=== PATIENT | female | born 1995 | race Caucasian/White ===

== ENCOUNTER 2016-06-24 13:01 | Emergency (ER) | payer MEDICAID, OTHER ==
[2016-06-24 13:28] VITALS: BMI 30.7
[2016-06-24] MEDS ORDERED: Sodium Chloride 0.9% 1,000 ML IV ONE (13:42)
[2016-06-24 13:44] VITALS: RESP 18; O2SAT 99
[2016-06-24 14:31] LABS: BASO % 0.5 % (0.0-2.0); EOS # 0.1 K/uL (0.0-0.7); EOS % 0.9 % (0.0-4.0); HEMATOCRIT 38.1 % (34.0-47.0); LYMPH # 1.7 K/uL (1.0-4.3); LYMPH % 30.6 % (20.0-40.0); MEAN CELL VOLUME 83.2 fL (81.0-99.0); MEAN CORPUSCULAR HEMOGLOBIN 27.8 pg (27.0-31.0); MEAN CORPUSCULAR HGB CONC 33.5 g/dL (33.0-37.0); MEAN PLATELET VOLUME 9.4 fL (7.2-11.7); MONO # 0.5 K/uL (0.0-0.8); MONO % 9.9 % (0.0-10.0); NRBC % 0.1 % (0.0-2.0); RED CELL DISTRIBUTION WIDTH 13.4 % (11.5-14.5); WHITE BLOOD COUNT 5.4 K/uL (4.8-10.8)
[2016-06-24 14:48] LABS: BLOOD UREA NITROGEN 3 mg/dL (7-17); CARBON DIOXIDE 22 mmol/L (22-30); CHLORIDE 100 mmol/L (98-107); GFR AFRICAN-AMERICAN > 60; GLUCOSE,RANDOM 72 mg/dL (65-105); POTASSIUM 3.7 mmol/L (3.6-5.2); SODIUM 131 mmol/L (132-148)
[2016-06-24 14:58] LABS: URINE BILIRUBIN NEGATIVE (NEGATIVE); URINE BLOOD NEGATIVE (NEGATIVE); URINE COLOR YELLOW (YELLOW); URINE GLUCOSE (UA) Normal (Normal); URINE KETONE NEGATIVE (NEGATIVE); URINE LEUKOCYTE ESTERASE Negative Leu/uL (Negative); URINE PROTEIN NEGATIVE (NEGATIVE); URINE UROBILINOGEN Normal mg/dL (0.2-1.0)
[2016-06-24 14:59] LABS: URINE BACTERIA OCC (<OCC)
[2016-06-24 15:09] LABS: CALCIUM 8.1 mg/dl (8.6-10.4)
--- NOTE | 2016-06-24 15:16 | US ---
PROCEDURE: OB Pelvic Ultrasound HISTORY: pain COMPARISON: Comparison is made to the previous study dated 04/01/2016 FINDINGS: LMP: 01/11/2016 UTERUS: Gestational sac: Single intrauterine gestation. Heart rate: 144 bpm. age (Ultrasound estimated): 19 weeks 2 days +/- 1 week 2 days Julieth-gestational hemorrhage: None. Date of delivery (Ultrasound estimated) : 11/16/2016 Placenta seen at the anterior wall. CERVIX: Long and closed. No cervical abnormality seen. RIGHT OVARY: Was not visualized. LEFT OVARY: Was not visualized. FREE FLUID: None. OTHER FINDINGS: None. IMPRESSION: Single intrauterine live with ultrasound estimated gestational age of 19 weeks 2 days +/- 1 week 2 days. Estimated date of delivery by ultrasound is 11/16/2016. Limited assessment for anatomy in this study. No ultrasound evidence of acute pathology noted.
--- NOTE | 2016-06-24 15:36 | C.PDOC ---
History Of Present Illness The patient, a 20 y/o female who is currently around 18 weeks , presents to the ED for evaluation of abdominal pain which began around 5 days ago. Patient states her LMP was 01/10 and she us . Patient states her pain worsened today and she reports to the ED for further evaluation. She denies fever, chills, back pain, nausea, vomiting, and diarrhea. Time Seen by Provider: 06/24/16 13:20 Chief Complaint (Nursing): Abdominal Pain History Per: Patient History/Exam Limitations: no limitations Onset/Duration Of Symptoms: Days (5), Worse Since Current Symptoms Are (Timing): Worse Location Of Pain/Discomfort: Diffuse Radiation Of Pain To:: None Quality Of Discomfort: "Pain" Associated Symptoms: denies: Fever, Chills, Nausea, Vomiting, Diarrhea Additional History Per: Patient Abnormal Vaginal Bleeding: No Last Menstral Period: 01/11/16 : 2 Para: 0 Past Medical History Reviewed: Historical Data, Nursing Documentation, Vital Signs Vital Signs: Last Vital Signs Temp 98 F 06/24/16 15:47 Pulse 88 06/24/16 15:47 Resp 18 06/24/16 15:47 BP 112/67 06/24/16 15:47 Pulse Ox 99 06/24/16 16:00 - Medical History PMH: No Chronic Diseases Surgical History: Appendectomy - [facility] Procedures INJECT/INFUSE ELECTROLYT (09/18/13) INJECT/INFUSE NEC (09/18/13) Family History: States: Unknown Family Hx - Social History Hx Tobacco Use: Yes Hx Alcohol Use: Yes Hx Substance Use: No - Immunization History Hx Tetanus Toxoid Vaccination: No Hx Influenza Vaccination: No Hx Pneumococcal Vaccination: No Review Of Systems Except As Marked, All Systems Reviewed And Found Negative. Constitutional: Negative for: Fever, Chills Gastrointestinal: Positive for: Abdominal Pain. Negative for: Nausea, Vomiting , Diarrhea Musculoskeletal: Negative for: Back Pain Physical Exam - Physical Exam Appears: Non-toxic, No Acute Distress Skin: Normal Color, Warm, Dry Head: Atraumatic, Normacephalic Eye(s): bilateral: Normal Inspection Oral Mucosa: Moist Neck: Supple Chest: Symmetrical, No Deformity, No Tenderness Cardiovascular: Rhythm Regular, No Murmur Respiratory: Normal Breath Sounds, No Rales, No Rhonchi, No Wheezing Gastrointestinal/Abdominal: Tenderness (mild to lower abdomen on palpation ), No Guarding, No Rebound Back: Normal Inspection, No Vertebral Tenderness, No Paraspinal Tenderness Extremity: Normal ROM, Capillary Refill (less than 2 seconds ) Neurological/Psych: Oriented x3, Normal Speech, Normal Cognition Gait: Steady ED Course And Treatment - Laboratory Results Result Diagrams: 06/24/16 14:13 06/24/16 14:13 Lab Interpretation: Normal Urine POC: Positive O2 Sat by Pulse Oximetry: 99 (on RA) Pulse Ox Interpretation: Normal - CT Scan/US Ultrasound Other Rad Studies (CT/US): Interpreted By Me, Read By Radiologist, Radiology Report Reviewed CT/US Interpretation: Accession No. : [id number]. Patient Name / ID : OLEKSANDR BYRNES / [id number]. Exam Date : 06/24/2016 14:14:47 ( Approved ). Study Comment : Sex / Age : F / 20Y. 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 Approver2 : Report Date : 06/24/2016 15:15:09. My Comment : . PROCEDURE: OB Pelvic Ultrasound. HISTORY: pain. COMPARISON: Comparison is made to the previous study dated 04/01/2016. FINDINGS: LMP: 01/11/2016. UTERUS: Gestational sac: Single intrauterine gestation. Heart rate: 144 bpm. age ( Ultrasound estimated): 19 weeks 2 days +/- 1 week 2 days. Julieth-gestational hemorrhage: None. Date of delivery (Ultrasound estimated) : 11/16/2016. Placenta seen at the anterior wall. CERVIX: Long and closed. No cervical abnormality seen. RIGHT OVARY: Was not visualized. LEFT OVARY: Was not visualized. FREE FLUID: None. OTHER FINDINGS: None. IMPRESSION: Single intrauterine live with ultrasound estimated gestational age of 19 weeks 2 days +/- 1 week 2 days. Estimated date of delivery by ultrasound is 03/2016. Limited assessment for anatomy in this study. No ultrasound evidence of acute pathology noted. Progress Note: labs and US ordered and reviewed. Patient received IV Fluids. On reasessment, patient is resting comfortably, showing no signs of distress, and reports an improvement in her pain. Patient was stable for discharge but left the ED without receiving discharge papers or follow-up instructions. Reassessment Condition: Improved Disposition Counseled Patient/Family Regarding: Studies Performed, Diagnosis, Need For Followup, Rx Given - Disposition Referrals: [facility] [Outside] [facility] [Outside] Disposition: HOME/ ROUTINE Disposition Time: 15:35 Condition: STABLE Instructions: (ED) - POA Present On Arrival: None - Clinical Impression Clinical Impression: Abdominal pain, , Abdominal pain affecting - PA / CAFE ATTENDANT / Resident Statement MD/DO has reviewed & agrees with the documentation as recorded. - Scribe Statement The provider has reviewed the documentation as recorded by the Scribe (Aaliyah Velazquez) All medical record entries made by the Scribe were at my direction and personally dictated by me. I have reviewed the chart and agree that the record accurately reflects my personal performance of the history, physical exam, medical decision making, and the department course for this patient. I have also personally directed, reviewed, and agree with the discharge instructions and disposition.
[2016-06-24 15:48] VITALS: BP 112/67; PULSE 88; TEMP 98
== END 2016-06-24 15:40 | disposition home or self-care (01) ==
LOC: C.ER 13:01
DX: O26.892 Other specified pregnancy related conditions, second trimester (principal); R10.30 Lower abdominal pain, unspecified; Z3A.18 18 weeks gestation of pregnancy

== ENCOUNTER 2016-09-04 20:42 | Emergency (ER) | payer SELFPAY ==
[2016-09-04 21:00] VITALS: BMI 34.7
[2016-09-04 21:20] LABS: BASO % 0.2 % (0.0-2.0); EOS % 0.1 % (0.0-4.0); HEMOGLOBIN 12.4 g/dL (11.0-16.0); LYMPH # 1.9 K/uL (1.0-4.3); LYMPH % 18.3 % (20.0-40.0); MEAN CELL VOLUME 80.7 fL (81.0-99.0); MEAN CORPUSCULAR HGB CONC 33.5 g/dL (33.0-37.0); MEAN PLATELET VOLUME 9.7 fL (7.2-11.7); MONO # 0.8 K/uL (0.0-0.8); MONO % 7.2 % (0.0-10.0); NEUT # 7.9 K/uL (1.8-7.0); NEUT % 74.2 % (50.0-75.0); RBC 4.6 Mil/uL (3.80-5.20); WHITE BLOOD COUNT 10.6 K/uL (4.8-10.8)
[2016-09-04 21:37] LABS: ALBUMIN 3.9 g/dL (3.5-5.0)
[2016-09-04 21:39] LABS: SQUAMOUS EPITHIAL 12 /hpf (0-5); URINE BACTERIA RARE (<OCC); URINE BILIRUBIN NEGATIVE (NEGATIVE); URINE BLOOD NEGATIVE (NEGATIVE); URINE CLARITY Hazy (Clear); URINE COLOR Amber (YELLOW); URINE GLUCOSE (UA) NORMAL (Normal); URINE LEUKOCYTE ESTERASE NEG Leu/uL (Negative); URINE NITRATE NEGATIVE (NEGATIVE); URINE PROTEIN 2+ mg/dL (NEGATIVE); URINE UROBILINOGEN NORMAL mg/dL (0.2-1.0)
[2016-09-04 21:40] LABS: ALB/GLOB RATIO 1.2 (1.0-2.1); ALT/SGPT 35 U/L (9-52); AST/SGOT 27 U/L (14-36); BLOOD UREA NITROGEN 5 mg/dL (7-17); GFR AFRICAN-AMERICAN > 60; GFR NON-AFRICAN AMERICAN > 60
[2016-09-04 21:41] LABS: CALCIUM 8.8 mg/dl (8.6-10.4)
== END 2016-09-04 23:34 | disposition home or self-care (01) ==
LOC: C.EROB 20:42
DX: O21.2 Late vomiting of pregnancy (principal); O26.893 Other specified pregnancy related conditions, third trimester; R19.7 Diarrhea, unspecified; Z3A.36 36 weeks gestation of pregnancy
CPT/HCPCS: 80053; 81001; 85025; 99283; J2405

== ENCOUNTER 2016-10-15 18:07 | Emergency (ER) | payer SELFPAY ==
--- NOTE | 2016-10-15 19:31 | OBHP ---
Datetime: 10/15/2016 19:18 IP Adm Impression: Term, intrauterine IP Admit Plan: Discharge home Admit Comment, IP Provider: 20 y/o @ 35.5 wks ERIC 11/14/16 report recently dx iwth yeast infe ction and seen by PMD Dr Boris briceño given medicaiton and reports vaignal burnig. pt denies any l of, vb, and has irregular contraction with pressure. pt states was told by pmd if has constant press ure go to hospital. 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, denies hx of abrnomla pap, fibroid, ovairan cyst NKDA FHX: DM, HTN, Asthma A/P @ 35.5 wks GA with vaginitis, no evdiece of labor -Monistat -labor precatuiosn given -f/u PMD within 1 week Pelvic Type - PN: Adequate Extremities - PN: Normal Abdomen - PN: Normal Back - PN: Normal Breast - PN: Not Done Lungs - PN: Normal Heart - PN: Normal Thyroid - PN: Normal Neurologic - PN: Normal HEENT - PN: Normal General - PN: Normal Presentation-Admit: Vertex FHR - Baseline A Provider: 135 Gestation - Est Wks by US: 35.5 EGA AdmitDate IP: 35.5 IP Chief Complaint: Other NICHD Variability Prov Fetus A: Moderate 6-25bpm NICHD Decel Fetus A IP Provider: None Genitourinary Exam: Normal DTRs - PN: Normal
--- NOTE | 2016-10-15 19:33 | OBDCSUM ---
Datetime: 10/15/2016 19:30 Follow up at, Provider: Dr Bassett Discharge Time: 10/15/2016 19:30 Follow up in weeks, Provider: 1 week Discharge Comment, Provider: labor jacky contreras 7 over the counter Discharge Diagnosis Prov Other: vaginitis
[2016-10-16 16:37] VITALS: BP 132/65; PULSE 82; RESP 18; TEMP 98.6; O2SAT 100
== END 2016-10-15 19:30 | disposition home or self-care (01) ==
LOC: C.EROB 18:07
DX: O23.593 Infection of other part of genital tract in pregnancy, third trimester (principal); Z3A.35 35 weeks gestation of pregnancy

== ENCOUNTER 2016-11-02 17:46 | Inpatient (IN) | payer MEDICAID, OTHER ==
[2016-11-02] MEDS ORDERED: Sodium Citrate/Citric Acid 15 ml Sol PO ONE (18:23)
[2016-11-02] MEDS ORDERED: cefOXitin IV 2 gm in Dextrose 2 GM/50 ML BAG IVPB ONE ×2 (18:23→18:51)
[2016-11-02] MEDS ORDERED: Sodium Citrate/Citric Acid 15 ml Sol ONE (18:50)
[2016-11-02 19:01] LABS: BASO % 0.7 % (0.0-2.0); EOS % 0.5 % (0.0-4.0); HEMATOCRIT 38.1 % (34.0-47.0); LYMPH # 2.1 K/uL (1.0-4.3); LYMPH % 30.8 % (20.0-40.0); MEAN CELL VOLUME 77.6 fL (81.0-99.0); MEAN CORPUSCULAR HEMOGLOBIN 25.7 pg (27.0-31.0); MEAN CORPUSCULAR HGB CONC 33.1 g/dL (33.0-37.0); MONO # 0.6 K/uL (0.0-0.8); MONO % 9.6 % (0.0-10.0); NRBC % 0.1 % (0.0-2.0); WHITE BLOOD COUNT 6.7 K/uL (4.8-10.8)
--- NOTE | 2016-11-02 19:50 | OBHP ---
Datetime: 11/02/2016 17:56 IP Adm Impression: Term, intrauterine ; Active labor IP Admit Plan: Admit to unit; Initiate Section protocol Admit Comment, IP Provider: 20 yo at 38 weeks 5 days with LMP (01/14/17) and an ERIC (11/12/16 ) as per Ultrasound. Patient presents with complaints of a 9/10 cramping/contraction that started at 2am this morning with one episode of vomiting at 6am. Patient stated that she felt a little better a fter vomiting, however, the contractions has been increasing in intensity since this morning. Patient denies vaginal bleeding, abnormal vaginal discharge, leakage of fluids but endorses movement. 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 Admits to tobacco use since age 16yea rs (2 cigarettes per day), denies ETOH and illicit drug use Vitals: BP:140/80 HR:81 A/P: 20 yo at 38 weeks 5 days with compliants of contraction 1. Admit to labor and delivery 2. Stable, Afebrile 3. Preparation for primary : (Admission orders) 4. Plans discussed with patient's primary recreation therapy director (Dr. Yu and he agrees) Jody Giles DO, PGY-1 Attending Attestation - patient seen and evaluated with me: I agree with the above as documented. Patient last ate full meal 2230 hours 11/01/16; drank glass of water at 0600 hours - vomited and has had nothing by mouth si nce. Plan: 1) As above - as per Dr. Yu Comments, ACOG Physical Exam: Gen: NAD, AAOX3 Cardio: RRR, Normal S1, S2 Pulm: CTA bilaterally Abdomen: Soft, gravid Ext: No edema, no cyanosis and no clubbing SVE: 1-2CM/40%/Posterior EFM: FHR (130), + Acceleration (-) deceleration EGA AdmitDate IP: 38.2 IP Chief Complaint: Uterine contractions
[2016-11-02] MEDS ORDERED: Morphine 1 mg/ml preservative-free Inj(Duramorph) ONE (19:59)
[2016-11-02] MEDS ORDERED: Phenylephrine 10 mg/ml Inj ONE (19:59)
[2016-11-02] MEDS ORDERED: Oxytocin 20 units in LR 2,000 ML IV ONE (20:03)
[2016-11-02] MEDS ORDERED: Lidocaine Hydrochloride 5 ML INJ ONE ×2 (20:21→20:37)
[2016-11-02] MEDS ORDERED: Propofol 10 mg/ml Inj (20 ML) ONE (20:46)
[2016-11-02] MEDS ORDERED: Succinylcholine Chloride 20 mg/ml Syr (5 ml) IV ONE (20:46)
[2016-11-02] MEDS ORDERED: Ketamine 50 mg/ml Inj (10 ml) ONE (20:47)
[2016-11-02] MEDS ORDERED: Oxytocin 10 Units/ml Inj ONE (21:02)
[2016-11-02] MEDS ORDERED: Oxycodone/Acetaminophen 5/325 mg Tab PO PRN (21:41)
[2016-11-02] MEDS ORDERED: Lactated Ringer's 1,000 ML IV SCH (21:45)
[2016-11-02 21:48] LABS: CHLORIDE 103 mmol/L (98-107); SODIUM 136 mmol/L (132-148)
[2016-11-02 21:49] LABS: POTASSIUM 3.9 mmol/L (3.6-5.2)
[2016-11-02 21:51] LABS: ALB/GLOB RATIO 1.3 (1.0-2.1); ALKALINE PHOSPHATASE 128 U/L (38-126); AST/SGOT 223 U/L (14-36); BILIRUBIN,TOTAL 0.7 mg/dL (0.2-1.3); BLOOD UREA NITROGEN 6 mg/dL (7-17); CARBON DIOXIDE 21 mmol/L (22-30); GFR AFRICAN-AMERICAN > 60; GLUCOSE,RANDOM 57 mg/dL (65-105); TOTAL PROTEIN 6.9 g/dL (6.3-8.3)
[2016-11-02 21:52] LABS: ALT/SGPT 177 U/L (9-52)
[2016-11-02 23:42] LABS: RBC URINE < 1 /hpf (0-3); TRANSITIONAL EPITHIAL < 1 /hpf (0-3); URINE BACTERIA RARE (<OCC); URINE BILIRUBIN NEGATIVE (NEGATIVE); URINE BLOOD NEGATIVE (NEGATIVE); URINE COLOR Yellow (YELLOW); URINE GLUCOSE (UA) NORMAL (Normal); URINE KETONE 1+ mg/dL (NEGATIVE); URINE LEUKOCYTE ESTERASE NEG Leu/uL (Negative); URINE PROTEIN NEGATIVE (NEGATIVE); URINE UROBILINOGEN NORMAL mg/dL (0.2-1.0)
[2016-11-03] MEDS: Oxycodone/Acetaminophen 5/325 mg Tab PO PRN ×5 (02:16→20:43)
[2016-11-03] MEDS: cefOXitin IV 2 gm in Dextrose 2 GM/50 ML BAG IVPB SCH ×2 (02:18→11:37)
[2016-11-03] MEDS ORDERED: cefOXitin IV 2 gm in Dextrose 2 GM/50 ML BAG IVPB SCH (02:23)
--- NOTE | 2016-11-03 06:55 | HP ---
HISTORY OF PRESENT ILLNESS: The patient is a 20-year-old female, 2, para 0. The patient's due date is 11/12/2016. The patient had previously elected to undergo an elective section on , but came in today with contractions and in early labor. The patient's course is significant for episodes of vomiting, which had persisted throughout the . She is currently on vitafol ultra. The patient was also noncompliant with visit. PAST SURGICAL HISTORY: Significant for a termination of x1. PHYSICAL EXAMINATION: VITAL SIGNS: Blood pressure is 110/70, pulse is 72, respiratory rate 20, and temperature is 98.8. HEAD, EARS, NOSE, AND THROAT: Within normal. CHEST: Clear. CARDIAC: Reveals normal heart sounds without any murmurs. LUNGS: Clear. BREASTS: Reveal no masses. ABDOMEN: Symphyseal-fundal height is 38 cm longitudinally, vertex. heart tones are normal. PELVIC: She is 1-2 cm, 80% effaced, -2 station. ADMITTING DIAGNOSIS: Intrauterine at 38 weeks in early labor, desires elective section. PLAN: Is to perform a lower segment section. Prior to being scheduled for surgical procedure, the patient underwent an informed consent, discussion, and education session with me in the hospital lasting approximately 45 minutes. During this time, I explained with an understandable terms the following: the nature and extent of the disease process and the nature and extent of the contemplated operation. I also explained to her the risks and potential complications of the operative procedures to include, but not limited to infection, hemorrhage, deep vein thrombosis, atelectasis, pneumonia, pulmonary embolism, damage to the bladder, damage to the ureter, renal insufficiency, renal failure, wound infection, wound dehiscence, incisional hernia, keloid formation, damage to large and small intestine, damage to inferior vena cava, and the aorta requiring extensive repair, anesthesia complications, electrolyte imbalance, possibility of , fluid overload, cerebral edema, embolism, and other complications that were discussed, but are not listed above. I also discussed with the patient the anticipated benefits and results of the surgery including a conservative estimate of the successful outcome. I discussed with the patient whether the operation was not accomplished. I informed the patient the possibility of an anticipated pathology requiring a more extensive procedure. All the questions from the patient were encouraged, welcomed and answered to her satisfaction. The patient had been given the opportunity to stay on blood and autologous blood transfusion and she had declined. Britney Cao MD SANTY
[2016-11-03 08:58] LABS: BASO # 0.1 K/uL (0.0-0.2); BASO % 0.5 % (0.0-2.0); EOS % 0.2 % (0.0-4.0); HEMATOCRIT 30.3 % (34.0-47.0); LYMPH # 2.2 K/uL (1.0-4.3); LYMPH % 15.3 % (20.0-40.0); MEAN CELL VOLUME 77.3 fL (81.0-99.0); MEAN CORPUSCULAR HEMOGLOBIN 25.7 pg (27.0-31.0); MEAN CORPUSCULAR HGB CONC 33.3 g/dL (33.0-37.0); MEAN PLATELET VOLUME 9.5 fL (7.2-11.7); MONO # 0.9 K/uL (0.0-0.8); MONO % 6.2 % (0.0-10.0); RED CELL DISTRIBUTION WIDTH 15.6 % (11.5-14.5)
[2016-11-03 09:00] LABS: WHITE BLOOD COUNT 14.3 K/uL (4.8-10.8)
--- NOTE | 2016-11-03 10:27 | PN ---
SUBJECTIVE: The patient has no complaints, mild incisional pain. OBJECTIVE: VITAL SIGNS: Stable. She is afebrile. ABDOMEN: Soft. Incision is clean and intact. Bowel sounds are normal. EXTREMITIES: Nontender. No evidence of DVT. Delon's sign is negative. CHEST: Clear. CARDIAC: Reveals normal heart sounds without any murmurs. LUNGS: Clear. ASSESSMENT: The patient is status post cesarian section day #1. PLAN: Is to ambulate the patient. Advanced diet as tolerated. Britney Cao MD
[2016-11-03] MEDS ORDERED: cefOXitin IV 2 gm in Dextrose 2 GM/50 ML BAG IVPB ONE (10:30)
--- NOTE | 2016-11-03 12:11 | US ---
HISTORY: elevated liver enzymes. COMPARISON: None available. TECHNIQUE: Sonographic evaluation of the abdomen. FINDINGS: LIVER: Measures 17.4 cm in sagittal dimension. Echogenic liver may be seen in setting of hepatic parenchymal disease or fatty infiltration. No focal hepatic mass identified. The main portal vein appears patent with normal directional flow. No intrahepatic bile duct dilatation. GALLBLADDER: Gallstones. No gallbladder wall thickening. Negative sonographic Ansari's sign as assessed by the instructional developer. COMMON BILE DUCT: Measures 4 mm. PANCREAS: Not well visualized. RIGHT KIDNEY: Measures 12.7 x 4.5 x 4.8cm. No obstructing calculus or hydronephrosis identified. LEFT KIDNEY: Measures 12.4 x 6.0 x 6.6cm. No obstructing calculus or hydronephrosis identified. SPLEEN: Measures approximately 11.7 x 3.1 cm. AORTA: Limited views appear unremarkable. IVC: Limited views appear unremarkable. OTHER FINDINGS: None. IMPRESSION: Echogenic liver may be seen in setting of hepatic parenchymal disease or fatty infiltration. Cholelithiasis.
[2016-11-03] MEDS: Prenatal Multivit/Folic Acid/Iron Tab PO SCH (12:17)
[2016-11-03] MEDS: Simethicone 80 mg Chewtab PO SCH ×4 (12:17→21:53)
[2016-11-03] MEDS: Enoxaparin 40 mg Syringe SC SCH (12:21)
[2016-11-03 14:59] LABS: CHLORIDE 104 mmol/L (98-107); POTASSIUM 3.7 mmol/L (3.6-5.2); SODIUM 134 mmol/L (132-148)
[2016-11-03 15:01] LABS: BILIRUBIN,TOTAL 0.4 mg/dL (0.2-1.3); CARBON DIOXIDE 22 mmol/L (22-30); GFR AFRICAN-AMERICAN > 60
[2016-11-03 15:02] LABS: ALB/GLOB RATIO 1.1 (1.0-2.1); ALKALINE PHOSPHATASE 78 U/L (38-126); ALT/SGPT 97 U/L (9-52); AST/SGOT 68 U/L (14-36); BLOOD UREA NITROGEN 4 mg/dL (7-17); CALCIUM 8.3 mg/dl (8.6-10.4); GLUCOSE,RANDOM 81 mg/dL (65-105); TOTAL PROTEIN 5.5 g/dL (6.3-8.3)
--- NOTE | 2016-11-03 15:56 | OP ---
PROCEDURE DATE: 11/02/2016 PREOPERATIVE DIAGNOSES: Intrauterine at 38 weeks and labor, desire elective section. POSTOPERATIVE DIAGNOSES: Intrauterine at 38 weeks and labor, desire elective section. PROCEDURE: Lower segment section. FINDINGS: A live male infant, Apgars 9 at one minute and 9 at five minutes with normal tubes and ovaries. SURGEON: Britney Cao MD TYPE OF ANESTHESIA: Spinal. ESTIMATED BLOOD LOSS: 350 mL COMPLICATIONS: Nil. DESCRIPTION OF PROCEDURE: After the risks, benefits and alternatives of the planned procedures including, but not limited to the infection, hemorrhage, deep vein thrombosis, atelectasis, pneumonia, pulmonary embolism, damage to the bladder, damage to the ureter, renal insufficiency, renal failure, wound infection, wound dehiscence, incisional hernia, keloid formation, damage to large and small intestine, damage to the inferior vena cava and the aorta requiring extensive repair, anesthesia complications, electrolyte imbalance, possibility of , fluid overload, cerebral edema, embolism, and other complications that were discussed, but are not listed above. They have been explained to the patient and all her questions answered. Informed consent was obtained. The patient was taken to the operating room in a stable condition. Under a suitable level of over 45 minutes, the patient was given general anesthesia, she was prepped and draped in a sterile fashion after having been placed in a supine position. The abdomen was then entered through a Pfannenstiel type incision and carried through the subcutaneous tissues through the fascia. The fascia was opened transversely and dissected of the rectus abdominis musculature. The rectus abdominis musculature was then in the midline to remove the parietal peritoneum, which was entered sharply and incised superiorly and inferiorly. Bladder peritoneum was then entered through a curvilinear fashion and dissected of the lower uterine segment. The lower uterine segment was then entered through a curvilinear incision. Surgeon's finger was inserted into the lower uterine segment to cross the infant's head, which was lying in the right occiput anterior position. The head was easily delivered. Nose and mouth were suctioned free of amniotic fluid and the remainder of the was delivered without any difficulty. Cord was doubly clamped and cut and the baby was handed over to the wind turbine blade repair technician who was in attendance. Cord blood was collected with Pitocin running, placenta was manually removed. The endometrium was then cleaned free of remaining membranes and clots. The uterine incision was then closed in layers with the first layer being running interlocking layer using #1 chromic and the second layer being used to imbricate the first layer. Hemostasis was good. The bladder peritoneum was then reapproximated using running suture of 2-0 chromic. Peritoneal cavity was then irrigated using copious amounts of saline. The saline was evacuated. The abdomen was then closed in layers with 0 chromic to the parietal peritoneum. The rectus muscles were reapproximated using interrupted sutures of 0 chromic. The fascia was reapproximated using two separate running sutures of 0 Vicryl to meet in the midline. Subcutaneous tissues were reapproximated using interrupted sutures of 0-Plain and the initial skin incision was reapproximated using 4-0 Vicryl in a subcuticular fashion. Estimated blood loss for the procedure was 350 mL. Sponge, needle, and instrument counts were correct x2. There were no complications. Britney Cao MD
[2016-11-04] MEDS: Oxycodone/Acetaminophen 5/325 mg Tab PO PRN ×6 (01:10→23:43)
[2016-11-04 08:38] VITALS: O2SAT 100
[2016-11-04] MEDS: Simethicone 80 mg Chewtab PO SCH ×5 (09:06→21:45)
[2016-11-04] MEDS: Enoxaparin 40 mg Syringe SC SCH (09:06)
[2016-11-04] MEDS: Prenatal Multivit/Folic Acid/Iron Tab PO SCH (09:09)
[2016-11-04 09:55] LABS: ALB/GLOB RATIO 1.1 (1.0-2.1); BILIRUBIN,DIRECT 0.3 mg/dL (0.0-0.4); BILIRUBIN,TOTAL 0.3 mg/dL (0.2-1.3); TOTAL PROTEIN 5.9 g/dL (6.3-8.3)
[2016-11-04 14:13] LABS: BASO % 0.2 % (0.0-2.0); EOS # 0.1 K/uL (0.0-0.7); EOS % 0.5 % (0.0-4.0); HEMATOCRIT 30.3 % (34.0-47.0); LYMPH # 1.6 K/uL (1.0-4.3); LYMPH % 13.8 % (20.0-40.0); MEAN CELL VOLUME 78.2 fL (81.0-99.0); MEAN CORPUSCULAR HEMOGLOBIN 25.3 pg (27.0-31.0); MEAN CORPUSCULAR HGB CONC 32.4 g/dL (33.0-37.0); MEAN PLATELET VOLUME 9.3 fL (7.2-11.7); MONO % 8.5 % (0.0-10.0); RED CELL DISTRIBUTION WIDTH 15.7 % (11.5-14.5); WHITE BLOOD COUNT 11.7 K/uL (4.8-10.8)
[2016-11-04 14:33] LABS: CHLORIDE 102 mmol/L (98-107); SODIUM 135 mmol/L (132-148)
[2016-11-04 14:34] LABS: POTASSIUM 3.7 mmol/L (3.6-5.2)
[2016-11-04 14:36] LABS: ALB/GLOB RATIO 1.1 (1.0-2.1); ALKALINE PHOSPHATASE 74 U/L (38-126); ALT/SGPT 71 U/L (9-52); AST/SGOT 39 U/L (14-36); BILIRUBIN,TOTAL 0.4 mg/dL (0.2-1.3); BLOOD UREA NITROGEN 4 mg/dL (7-17); CARBON DIOXIDE 23 mmol/L (22-30); GFR AFRICAN-AMERICAN > 60; GLUCOSE,RANDOM 80 mg/dL (65-105)
[2016-11-04 14:37] LABS: CALCIUM 8.9 mg/dl (8.6-10.4)
[2016-11-05] MEDS ORDERED: Measles, Mumps, and Rubella 0.5 ML VIAL SC ONE (07:19)
[2016-11-05] MEDS: Oxycodone/Acetaminophen 5/325 mg Tab PO PRN ×2 (08:28→12:13)
--- NOTE | 2016-11-05 09:04 | PN ---
DATE: 11/04/16 SUBJECTIVE: The patient has no complaints. OBJECTIVE: VITAL SIGNS: Stable. She is afebrile. SKIN: Abdominal incision is clean and intact. EXTREMITIES: Nontender . LABORATORY DATA: Abdominal ultrasound done on 11/03/2016 showed cholelithiasis with no evidence of a positive Ansari sign. No gallbladder wall thickening. Liver function tests are coming down to normal. ASSESSMENT AND PLAN: The patient is status post section with an evidence of cholelithiasis. Plan is to continue current management advanced diet and ambulate. The patient will be referred to general surgery postoperatively as an outpatient for possible cholecystectomy. Britney Cao MD
[2016-11-05] MEDS: Enoxaparin 40 mg Syringe SC SCH (10:42)
[2016-11-05] MEDS: Prenatal Multivit/Folic Acid/Iron Tab PO SCH (10:43)
[2016-11-05] MEDS: Simethicone 80 mg Chewtab PO SCH (10:43)
--- NOTE | 2016-11-06 00:03 | PN ---
DATE: SUBJECTIVE: Patient has no complaints. She is passing gas. She had a bowel movement. She does have no abdominal pain. Liver function tests have resolved, back to normal. OBJECTIVE: VITAL SIGNS: On exam vital signs are stable. ABDOMEN: Soft. Ansari sign is negative. Incision is clean and intact. EXTREMITIES: Nontender. NEUROLOGICAL: She is alert and oriented x3. : Lochia is scant. ASSESSMENT: Patient is status post section, day #3, cholelithiasis is . PLAN: Plan is to discharge the patient on Keflex 500 mg q.i.d. x7 days, Tylenol No. 3 two tablets q.4 hourly p.r.n. for a total of 40 tablet. Followed up in the office in 1 week. Britney Cao MD
[2016-11-06 00:29] VITALS: BP 128/81; PULSE 68; RESP 18; TEMP 98.4
--- NOTE | 2016-11-06 09:34 | DS ---
The patient is a 20-year-old female admitted at 38 weeks 5 days of in labor. The patient requested an elective section, underwent a lower segment section under general anesthesia after failed spinal. The patient was noted to have elevated liver function test, which resolved. Sonogram showed cholelithiasis. The patient was discharged home on Keflex 500 mg q.i.d. x7 days and Tylenol #3, to be followed up in the office in one week where she will be referred to general surgery for management of cholelithiasis. Britney Cao MD
== END 2016-11-05 14:45 | disposition home or self-care (01) | DRG 766 ==
LOC: C.EROB 17:46 → C.4D 18:25 → C.4M 11-03 00:29
PROVIDERS: ADMIT Obstetrics & Gynecology Reproductive Endocrinology; ATTEND Obstetrics & Gynecology Reproductive Endocrinology
PROC: 10D00Z1 Extraction of Products of Conception, Low, Open Approach (ICD-10-PCS; principal; 2016-11-02)
DX: O34.219 Maternal care for unspecified type scar from previous cesarean delivery (principal); F17.210 Nicotine dependence, cigarettes, uncomplicated; O99.334 Smoking (tobacco) complicating childbirth; O75.89 Other specified complications of labor and delivery; R11.10 Vomiting, unspecified; Z37.0 Single live birth; Z3A.38 38 weeks gestation of pregnancy

== ENCOUNTER 2017-09-01 19:02 | Emergency (ER) | payer MEDICAID ==
[2017-09-01 19:03] VITALS: BMI 34.7
[2017-09-01] MEDS ORDERED: Sodium Chloride 0.9% 1,000 ML IV ONE (19:51)
--- NOTE | 2017-09-01 19:51 | C.PDOC ---
"History Of Present Illness 21 y/o female with history of PCOS presents to ED with c/o cramping abdominal pain for 5-6 days. Patient reports she gave in October and secondary to PCOS has irregular menses. Patient denies fever, chills, vaginal bleeding, dysuria, nausea, vomiting or any other complaints at this time. Time Seen by Provider: 09/01/17 19:50 Chief Complaint (Nursing): Abdominal Pain History Per: Patient History/Exam Limitations: no limitations Onset/Duration Of Symptoms: Days Current Symptoms Are (Timing): Still Present Severity: Mild Pain Scale Rating Of: 2 Location Of Pain/Discomfort: Diffuse Radiation Of Pain To:: None Quality Of Discomfort: Cramping Associated Symptoms: denies: Fever, Chills, Nausea, Vomiting Exacerbating Factors: None Alleviating Factors: None Past Medical History Reviewed: Historical Data, Nursing Documentation, Vital Signs Vital Signs: Last Vital Signs Temp 98.6 F 09/01/17 22:50 Pulse 73 09/01/17 22:50 Resp 16 09/01/17 22:50 BP 120/64 09/01/17 22:50 Pulse Ox 99 09/01/17 23:37 - Medical History PMH: No Chronic Diseases Surgical History: Appendectomy - [facility] Procedures EXTRACTION OF POC, LOW CERVICAL, OPEN APPROACH (11/02/16) INJECT/INFUSE ELECTROLYT (09/18/13) INJECT/INFUSE NEC (09/18/13) Family History: States: No Known Family Hx - Social History Hx Tobacco Use: Yes Hx Alcohol Use: Yes Hx Substance Use: No - Immunization History Hx Tetanus Toxoid Vaccination: No Hx Influenza Vaccination: No Hx Pneumococcal Vaccination: No Review Of Systems Constitutional: Negative for: Fever, Chills Gastrointestinal: Positive for: Abdominal Pain. Negative for: Nausea, Vomiting , Diarrhea Genitourinary: Negative for: Dysuria, Vaginal Bleeding Musculoskeletal: Negative for: Back Pain Skin: Negative for: Rash Physical Exam - Physical Exam Appears: Non-toxic, No Acute Distress Skin: Warm, Dry, No Rash Head: Normacephalic Eye(s): bilateral: Normal Inspection Oral Mucosa: Moist Neck: Supple Chest: Symmetrical Cardiovascular: Rhythm Regular Respiratory: Normal Breath Sounds, No Rales, No Rhonchi, No Wheezing Gastrointestinal/Abdominal: Soft, Tenderness (Diffuse, milf), Distention (large mass, most likely gravid uterus, almost subxyfoid), No Guarding, No Rebound Back: No CVA Tenderness Neurological/Psych: Oriented x3, Normal Speech ED Course And Treatment - Laboratory Results Result Diagrams: 09/01/17 20:06 09/01/17 20:06 O2 Sat by Pulse Oximetry: 99 (RA) Pulse Ox Interpretation: Normal - CT Scan/US Pelvic US Other Rad Studies (CT/US): Read By Radiologist, Radiology Report Reviewed CT/US Interpretation: EXAM: US After First Trimester, Transabdominal. CLINICAL HISTORY: 21 years old, female; Signs and symptoms; Lmp or gestational age (in weeks): 27wks; Other: Hcg. 51607; . TECHNIQUE: Real-time transabdominal obstetrical ultrasound of the maternal pelvis and a second or third. trimester with image documentation. COMPARISON: No relevant prior studies available. FINDINGS: Fetus: Garcia . Heart rate: heart rate is 115 beats minute.. Presentation: presentation cephalic. Placenta: The placenta is located anteriorly and is normal. No abruption. Amniotic fluid: Unremarkable. Anatomy: Visualized anatomy is normal. Although the detail anatomy is not optimally. delineated. BIOMETRICS. Gestational age: 27 weeks 1 day by today's sonogram. ERIC: ERIC by sonogram 11/30/2017. EFW: Estimated weight is 1070 g, 2 lbs. 4 oz. BPD: 8.7 cm, 27 weeks 1 days. HC: 25.0 cm, 7 weeks 1 days. AC: 22.0 cm , and is 6 weeks 3 days. FL: 5.2 cm, 27 weeks 4 days. MATERNAL: SONIYA LEGGETT | Preliminary Radiology Report. CONFIDENTIALITY STATEMENT. This report is intended only for the use of the referring physician, and only in accordance with law, If you received this in error, call [phone]. Page 2 of 2. Uterus: Unremarkable. No myometrial mass. Cervix: The cervix is closed, measuring approximately 3.5 cm. Free fluid : No free fluid. IMPRESSION: Single living is present. Anatomy is limited, no significant acute abnormalities. Gestational age 27 weeks 1 day. Thank you for allowing us to participate in the care of your patient. Dictated and Authenticated by: Ethan Eric MD. 09/01/2017 11:36 PM Eastern Time ( [place] & [place]) Disposition Counseled Patient/Family Regarding: Studies Performed, Diagnosis, Need For Followup, Rx Given - Disposition Referrals: Dex Heath MD [Non-Staff] - Disposition: HOME/ ROUTINE Disposition Time: 19:51 Condition: FAIR Additional Instructions: Please follow up with your occasional caregiver Prescriptions: Nitrofurantoin Macrocrystals [Macrobid] 1 cap PO BID #14 cap Instructions: - The Seventh Month, Urinary Tract Infection, Adult (DC ) Forms: Mytonomy (Greek) - Clinical Impression Clinical Impression: , UTI (urinary tract infection) during - Scribe Statement The provider has reviewed the documentation as recorded by the Scribdago Jauregui All medical record entries made by the Callumibe were at my direction and personally dictated by me. I have reviewed the chart and agree that the record accurately reflects my personal performance of the history, physical exam, medical decision making, and the department course for this patient. I have also personally directed, reviewed, and agree with the discharge instructions and disposition."
[2017-09-01] MEDS ORDERED: Sodium Chloride 0.9% 1,000 ML ONE (19:58)
[2017-09-01 20:17] LABS: BASO # 0.1 K/uL (0.0-0.2); BASO % 0.9 % (0.0-2.0); EOS # 0.1 K/uL (0.0-0.7); EOS % 0.8 % (0.0-4.0); HEMOGLOBIN 9.8 g/dL (11.0-16.0); LYMPH # 2.7 K/uL (1.0-4.3); LYMPH % 25.7 % (20.0-40.0); MEAN CELL VOLUME 67.9 fL (81.0-99.0); MEAN CORPUSCULAR HEMOGLOBIN 22.3 pg (27.0-31.0); MEAN CORPUSCULAR HGB CONC 32.8 g/dL (33.0-37.0); MEAN PLATELET VOLUME 9.1 fL (7.2-11.7); MONO % 9.9 % (0.0-10.0); NEUT # 6.6 K/uL (1.8-7.0); NEUT % 62.7 % (50.0-75.0); NRBC % 0.1 % (0.0-2.0); RBC 4.4 Mil/uL (3.80-5.20); RED CELL DISTRIBUTION WIDTH 18.2 % (11.5-14.5); WHITE BLOOD COUNT 10.5 K/uL (4.8-10.8)
[2017-09-01 20:24] LABS: INR 1.1; PROTHROMBIN TIME 11.8 SECONDS (9.7-12.2)
[2017-09-01 20:38] LABS: HCG,QUALITATIVE URINE POSITIVE (NEGATIVE)
[2017-09-01 20:41] LABS: ALB/GLOB RATIO 1.2 (1.0-2.1); ALBUMIN 3.7 g/dL (3.5-5.0); ALT/SGPT 20 U/L (9-52); AST/SGOT 25 U/L (14-36); BLOOD UREA NITROGEN 3 mg/dL (7-17); CALCIUM 9.1 mg/dl (8.6-10.4); GFR AFRICAN-AMERICAN > 60; GFR NON-AFRICAN AMERICAN > 60; LIPASE 44 U/L (23-300)
[2017-09-01 20:51] LABS: SQUAMOUS EPITHIAL 9 /hpf (0-5); URINE BACTERIA OCC (<OCC); URINE BILIRUBIN NEGATIVE (NEGATIVE); URINE BLOOD NEGATIVE (NEGATIVE); URINE CLARITY Hazy (Clear); URINE COLOR Yellow (YELLOW); URINE GLUCOSE (UA) NORMAL (Normal); URINE LEUKOCYTE ESTERASE 2+ Leu/uL (Negative); URINE PROTEIN 1+ mg/dL (NEGATIVE)
[2017-09-01 22:50] VITALS: BP 120/64; PULSE 73; RESP 16; TEMP 98.6
[2017-09-01 23:15] VITALS: O2SAT 99
--- NOTE | 2017-09-02 11:15 | US ---
Date of service: 09/01/2017 PROCEDURE: ultrasound HISTORY: hcg 02033 COMPARISON: None available. TECHNIQUE: Standard protocol for this study/examination. FINDINGS: Cephalic presentation. Anterior Placenta. No evidence of abruption or previa Gestational age derived from LMP Cannot be ascertained based in the absence of a reliable/ known LMP Gestational age derived from the following biometric parameters 27 weeks 1 day. ERIC 11/30/2017. Biparietal diameter 6.74 cm Head circumference 25.03 cm Abdominal circumference 22.04 cm Femur length 5.15 cm Estimated weight 1007 g Calculated cardiac rate 116 beats per min. Closed cervix measuring 3.46 cm IMPRESSION: 27 weeks 1 day live intrauterine gestation. Gestational concordance cannot be assessed in the absence of reliable LMP. Concordant results (preliminary interpretation) provided by [facility]. Procedure Completed: 22:37 Preliminary ([facility]) Report: Dictated and Authenticated: 23:36 Final Interpretation: 11:13 September 02, 2017.
== END 2017-09-01 23:50 | disposition home or self-care (01) ==
LOC: C.ER 19:02
DX: O23.42 Unspecified infection of urinary tract in pregnancy, second trimester (principal); Z3A.27 27 weeks gestation of pregnancy
CPT/HCPCS: 76815; 80053; 81001; 83690; 84702; 84703; 85025; 85610; 85730; 99284; J7030

== ENCOUNTER 2017-10-19 23:28 | Emergency (ER) | payer MEDICAID ==
[2017-10-20 00:37] VITALS: BMI 33.7
[2017-10-20] MEDS ORDERED: Lactated Ringer's 1,000 ML IV ONE (00:37)
[2017-10-20] MEDS ORDERED: Betamethasone Soluspan 30 mg/5mL Inj Susp IM SCH (00:39)
--- NOTE | 2017-10-20 01:14 | OBHP ---
Datetime: 10/20/2017 00:42 IP Chief Complaint Other: Vaginal pain/pressure IP Adm Impression Other: Previous C/S; short nterval between pregnancies IP Admit Plan: Observation/Evaluation Admit Comment, IP Provider: 21 y.o. , LMP unsure, ERIC 11/30/17, EGA 34w 1d c/o worsenng vagi nal pain and vaginal pressure since 1600 hours. Pain and pressure onset on and off x 1 week; now pain scale 9/10 associated withthe sensation of wanting to "poop" (+) AFM; denies LOF, VB. (+)B-H Ctx care: [facility]; late registrant at 29 weeks, approx 4-5 weeks ago. P Ob: 11/02/16, C/S, (elective), male, 6lb 1oz, CH; no complicaitons. 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 Denies STIs PMH: denies PSH: Age 12, appendectomy; C/S, D_C Meds: PNV NKDA Soc Hx: denies tobacco, illicit drug or EtOH use. Lives with FOB and infant; together x 3 years. U nemployed Fam Hx: Mother alive 43 no med issues. Father age unk; hx unk. (+) pat fam h/o HTN, DM. P.E.: as above. Mildly obese in NAD. Awake, alert, oriented to time, person and place. Pleasant and cooperative. FOB and present Assessment: 21 y.o. P1011, 34w 1d, prevoius C/S, vaginal pain, mild irregular Ctx; not dilating. D/W patient IVFs, and administering steroids for lung profile. Ina expressed an understandi ng and agrees. CAtegory 1 traicng. Plan: 1) IVFs 2) Celestsone 12 mg now and in 24 hours 3) U/A 4) UDS Notified by R.N: patient desires to leave: attempts at starting IV proved unsuccessful/ Patient up set that "nurse doesn't know what she is doing; ...I'll go and get my IVFs at [facility]. .. Next time, I'll say I'm Dr. Yu's paitent; not that I go to the clinic". Patient reassured there is no discrimination based on manner in which care is delivered/received. "I know honey; she took care of me the last vincent". Patient signed Leaving Against Medical Advice. Patient left the unit in s table condition with FOB and infant. Pelvic Type - PN: Adequate Extremities - PN: Normal Abdomen - PN: Normal Back - PN: Normal Lungs - PN: Normal Heart - PN: Normal Thyroid - PN: Not Done Neurologic - PN: Normal HEENT - PN: Normal General - PN: Normal Presentation-Admit: Vertex FHR - Baseline A Provider: 135 Contraction Comments Provider: 10-12 minutes Comments, ACOG Physical Exam: Abdomen: obese. Soft, non tender in all quadrants. Fundal height 35cm. Healed Pfannenstiel scar All other systems reviewed and are negative Gestation - Est Wks by US: 34w 1d IP Hx Assessment: Insufficient care EGA AdmitDate IP: 34.1 Vital Signs Provider: Reviewed; Within Normal Limits IP Chief Complaint: Maternal discomfort; Other NICHD Variability Prov Fetus A: Moderate 6-25bpm NICHD Accel Fetus A IP Provider: 15X15 NICHD Decel Fetus A IP Provider: None Dilatation, Provider: 0 Effacement, Provider: 30 Genitourinary Exam: Normal DTRs - PN: Not Done
[2017-10-20 06:09] VITALS: BP 127/62; PULSE 73; RESP 20; TEMP 98
== END 2017-10-20 00:50 | disposition left against medical advice (07) ==
LOC: C.EROB 23:28
DX: O26.893 Other specified pregnancy related conditions, third trimester (principal); Z3A.34 34 weeks gestation of pregnancy; R10.2 Pelvic and perineal pain; O47.03 False labor before 37 completed weeks of gestation, third trimester
CPT/HCPCS: 99283; J0702; J7120

== ENCOUNTER 2017-10-30 13:16 | Emergency (ER) | payer MEDICAID ==
[2017-10-30 14:13] VITALS: BMI 39.9
[2017-10-30 14:52] LABS: SQUAMOUS EPITHIAL 1 /hpf (0-5); URINE BACTERIA RARE (<OCC); URINE BILIRUBIN NEGATIVE (NEGATIVE); URINE BLOOD NEGATIVE (NEGATIVE); URINE CLARITY Clear (Clear); URINE COLOR Straw (YELLOW); URINE GLUCOSE (UA) NORMAL (Normal); URINE LEUKOCYTE ESTERASE NEG Leu/uL (Negative); URINE PROTEIN NEGATIVE (NEGATIVE); URINE UROBILINOGEN NORMAL mg/dL (0.2-1.0)
--- NOTE | 2017-10-30 17:07 | OBHP ---
Datetime: 10/30/2017 16:49 IP Adm Impression: , intrauterine IP Admit Plan: Observation/Evaluation Admit Comment, IP Provider: 21 yo female with an IUP at 35.4 weeks Presented with c/o of abdominal cramping. Scale 7 of 10 Denies LOF, VB or VD. Admits to adequate FM Denies urinary or bowel complaints care: [facility]- ; late registrant at 29 weeks P Ob: 11/02/16, C/S, (elective), male, 6lb 1oz, CH; no complicaitons. 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 Denies STIs PMH: denies PSH: Age 12, appendectomy; C/S, D_C Meds: PNV NKDA Soc Hx: denies tobacco, illicit drug or EtOH use. Lives with FOB and infant; together x 3 years. U nemployed Fam Hx: Mother alive 43 no med issues. Father age unk; hx unk. (+) pat fam h/o HTN, DM. P.E.: as above. Mildly obese in NAD. Awake, alert, oriented to time, person and place. Pleasant and cooperative. FOB present Plan: Will check urine and continuous monitoring and reassess Pelvic Type - PN: Adequate Extremities - PN: Normal Abdomen - PN: Normal Back - PN: Normal Breast - PN: Not Done Lungs - PN: Normal Heart - PN: Normal Thyroid - PN: Normal Neurologic - PN: Normal HEENT - PN: Normal General - PN: Normal Presentation-Admit: Vertex FHR - Baseline A Provider: 130 Membranes, Provider: Intact Gestation - Est Wks by US: 35.4 IP Hx Assessment: records not available EGA AdmitDate IP: 35.4 Vital Signs Provider: Reviewed; Within Normal Limits IP Chief Complaint: Uterine contractions; Maternal discomfort; evaluation NICHD Variability Prov Fetus A: Moderate 6-25bpm NICHD Accel Fetus A IP Provider: 10X10 FHR Category Provider Fetus A: Category I NICHD Decel Fetus A IP Provider: None Dilatation, Provider: 0 Effacement, Provider: 0 Station, Provider: -3 Genitourinary Exam: Normal DTRs - PN: Normal
--- NOTE | 2017-10-30 17:15 | OBDCSUM ---
Datetime: 10/30/2017 17:06 Discharged to, Provider: Home Follow up at, Provider: Clinic Disch Instr Activity: Normal activity Disch Instr Diet: Regular Discharge Instructions, Provider: Routine instructions given Discharge Diagnosis, Provider: False Labor - Undelivered Discharge Time: 10/30/2017 16:15 Follow up in weeks, Provider: Scheduled appt in 4 days Contraception discussed, Prov: No Disch Activity Restrictions: No exercising; No lifting; Minimize stair-climbing; No sexual activity; Nothing in vagina - [place], tampons, douche Discharge Comment, Provider: 35.4 weeks IUP No contractions recorded or palpated Cx closed and long tracing reassuring Pain significantly improved after po hydration and bed rest. Scale 3-10 Reassured Short pregnancies interval. Has a 1 yr old at home Advised to rest and pelvic rest F/Up in scheduled appointment or prior if needed Continue PNV and may take some Motrin 600 mg po Q 6 hours x 2 dosis only if needed and with food. D/C home in Stable and Satisfactory condition Datetime: 10/30/2017 16:21 Discharged to, Provider: Home Follow up at, Provider: [facility] Disch Instr Activity: Normal activity Disch Instr Diet: Regular Discharge Time: 10/30/2017 16:14 Follow up in weeks, Provider: ON WEDNESDAY Disch Referrals: None Disch Activity Restrictions: No lifting Datetime: 10/20/2017 00:50 Discharged to, Provider: Home Follow up at, Provider: [facility] Discharge Time: 10/30/2017 16:14 Follow up in weeks, Provider: THIS WEDNESDAY Disch Referrals: None
[2017-10-30 20:31] VITALS: BP 132/77; PULSE 84; TEMP 97.8
== END 2017-10-30 16:15 | disposition home or self-care (01) ==
LOC: C.EROB 13:16
DX: O47.03 False labor before 37 completed weeks of gestation, third trimester (principal); Z3A.35 35 weeks gestation of pregnancy

== ENCOUNTER 2017-11-23 06:41 | Inpatient (IN) | payer MEDICAID ==
[2017-11-23] MEDS ORDERED: Lactated Ringer's 1,000 ML IV ONE (07:16)
[2017-11-23] MEDS ORDERED: Sodium Citrate/Citric Acid 15 ml Sol PO ONE (07:30)
[2017-11-23 07:48] LABS: BASO # 0.1 K/uL (0.0-0.2); BASO % 1.4 % (0.0-2.0); EOS % 0.4 % (0.0-4.0); HEMOGLOBIN 9.1 g/dL (11.0-16.0); LYMPH % 37.5 % (20.0-40.0); MEAN CORPUSCULAR HEMOGLOBIN 20.5 pg (27.0-31.0); MEAN CORPUSCULAR HGB CONC 31.3 g/dL (33.0-37.0); MEAN PLATELET VOLUME 9.6 fL (7.2-11.7); MONO # 0.6 K/uL (0.0-0.8); MONO % 7.6 % (0.0-10.0); NEUT # 4.2 K/uL (1.8-7.0); NEUT % 53.1 % (50.0-75.0); NRBC % 0.1 % (0.0-2.0); RBC 4.46 Mil/uL (3.80-5.20); WHITE BLOOD COUNT 7.9 K/uL (4.8-10.8)
[2017-11-23] MEDS ORDERED: Sodium Citrate/Citric Acid 15 ml Sol ONE (07:50)
[2017-11-23] MEDS ORDERED: Oxytocin 10 Units/ml Inj ONE (07:50)
[2017-11-23] MEDS ORDERED: Oxytocin 20 units in LR 2,000 ML IV ONE (07:50)
[2017-11-23 07:51] LABS: MEAN CELL VOLUME 65.4 fL (81.0-99.0)
[2017-11-23] MEDS ORDERED: cefOXitin IV 2 gm in Saline 2 GM/50 ML BAG IVPB ONE ×2 (07:51→10:32)
[2017-11-23] MEDS ORDERED: cefOXitin IV 2 gm in Dextrose 2 GM/50 ML BAG IVPB ONE (08:00)
[2017-11-23 08:03] LABS: SQUAMOUS EPITHIAL 6 /hpf (0-5); URINE BACTERIA OCC (<OCC); URINE BILIRUBIN NEGATIVE (NEGATIVE); URINE BLOOD NEGATIVE (NEGATIVE); URINE CLARITY Hazy (Clear); URINE COLOR Yellow (YELLOW); URINE GLUCOSE (UA) NORMAL (Normal); URINE LEUKOCYTE ESTERASE 2+ Leu/uL (Negative); URINE PROTEIN NEGATIVE (NEGATIVE); URINE UROBILINOGEN NORMAL mg/dL (0.2-1.0)
[2017-11-23 08:09] LABS: ALB/GLOB RATIO 1.1 (1.0-2.1); ALBUMIN 3.3 g/dL (3.5-5.0); ALT/SGPT 18 U/L (9-52); AST/SGOT 28 U/L (14-36); BLOOD UREA NITROGEN 8 mg/dL (7-17); CALCIUM 8.8 mg/dl (8.6-10.4); GFR NON-AFRICAN AMERICAN > 60
[2017-11-23] MEDS ORDERED: Morphine 1 mg/ml preservative-free Inj(Duramorph) ONE (09:31)
[2017-11-23] MEDS ORDERED: Midazolam 2 MG/2 ML VIAL ONE (10:33)
[2017-11-23] MEDS ORDERED: Naloxone 0.4 mg/ml Inj (Adult) IVP PRN (11:34)
[2017-11-23] MEDS ORDERED: DiphenhydrAMINE 50 mg/ml Inj IVP PRN (13:10)
[2017-11-23 13:19] LABS: BARBITURATES, UR NEGATIVE (NEGATIVE); BENZODIAZEPINES, UR NEGATIVE (NEGATIVE); OPIATES, UR NEGATIVE (NEGATIVE); PHENCYCLIDINE, UR NEGATIVE (NEGATIVE)
[2017-11-23] MEDS: Simethicone 80 mg Chewtab PO SCH ×2 (13:57→17:35)
--- NOTE | 2017-11-23 21:18 | OBDS ---
DELIVERY PERSONNEL Delivery Doctor: Annabella Torres MD Scrub Nurse: Kathrin lewis Store Promoter: Celia Gibbs RN Anesthesiologist: Susan Merino MD MATERNAL INFORMATION Delivery Anesthesia: Spinal Medications in Delivery: 1 gram mefoxin Placenta Cultured: No Maternal Complications: None Provider Comments: LTC Section with delivery of a viable female with Apgars of 9_9 at 1 and 5 minutes respectively and BW 6lbs, 13 oz. EBL 600 ml Placenta, cord blood and cord pH sent No complications Pt and tolerated the procedure well and remained in LDR in S_S condition LABOR SUMMARY EDC: 11/30/2017 00:00 EDC: 11/30/2017 00:00 No. Babies in Womb: 1 Attempted: No LABOR INFORMATION Reason for Induction: Not Applicable Oxytocin: N/A Group B Beta Strep: Positive Group B Beta Strep: Positive Antibiotics # of Doses: 2 Antibiotics Time of Last Dose: 1032 - [address] Merino Steroids Given: None Reason Steroids Not Administered: Not Applicable MEMBRANES Membranes Rupture Method: Artificial Rupture of Membranes: 11/23/2017 10:38 Length of Rupture (hrs): 0.00 Amniotic Fluid Color: Clear Amniotic Fluid Amount: Moderate Amniotic Fluid Odor: Normal STAGES OF LABOR Stage 3 hrs: 0 Stage 3 min: 1 CSECTION DELIVERY Primary Indication: Previous Section Other Primary Indication: Term CSection Urgency: Elective CSection Incidence: Repeat Labor: N/A Elective: N/A CSection Incision: Lower Uterine Transverse BABY A INFORMATION Infant Delivery Date/Time: 11/23/2017 10:38 Method of Delivery: Born in Route : No : N/A Forceps: N/A Vacuum Extraction: N/A Shoulder Dystocia : No SHOULDER DYSTOCIA BABY A Infant Delivery Date/Time: 11/23/2017 10:38 PRESENTATION/POSITION BABY A Presentation: Cephalic Cephalic Presentation: Vertex Vertex Position: Right Occipital Anterior Breech Presentation: N/A PLACENTA INFORMATION BABY A Placenta Delivery Time : 11/23/2017 10:39 Placenta Method of Delivery: Manual Removal SCORES BABY A Heart Rate 1 min: >100 bpm Resp Effort 1 min: Good Cry Reflex Irritability 1 min: Cough or Sneeze or Pulls Away Muscle Tone 1 min: Active Motion Color 1 min: Body [place], Extremities Blue Resuscitation Effort 1 min: Tactile Stimulation SCORE 1 MIN: 9 Heart Rate 5 min: >100 bpm Resp Effort 5 min: Good Cry Reflex Irritability 5 min: Cough or Sneeze or Pulls Away Muscle Tone 5 min: Active Motion Color 5 min: Body [place], Extremities Blue Resuscitation Effort 5 min: N/A SCORE 5 MIN: 9 INFANT INFORMATION BABY A Gestational Age at Delivery: 39.0 Gestational Status: Term Outcome : Liveborn Condition : Stable Sex: Female IDENTIFICATION/MEDS BABY A ID Band Number: [id number] ID Band Location: Left Leg; Left Arm Sensor Applied: Yes Sensor Number: [id number] Sensor Location : Cord Clamp Vitamin K Given : Aquamephyton 1 mg IM Erythromycin Given: Given Both Eyes WEIGHT/LENGTH BABY A Infant Birthweight (gms): 3090 Infant Weight (lb): 6 Infant Weight (oz): 13 Length Inches: 18.75 Length cms: 47.6 CORD INFORMATION BABY A No. Cord Vessels: 3 Nuchal Cord : N/A Cord Blood Taken: Yes Infant Suction: Mouth; Nose ASSESSMENT BABY A Complications: None Physical Findings at Delivery: Within Normal Limits Respirations: Appears Normal Gas Utility Worker/ALS Called : No Infant Care By: Stephania Salazar RN Transferred To: Nursery
[2017-11-23] MEDS: Oxycodone/Acetaminophen 5/325 mg Tab PO PRN (22:15)
[2017-11-24] MEDS: Oxycodone/Acetaminophen 5/325 mg Tab PO PRN ×5 (03:48→22:49)
[2017-11-24 07:17] LABS: HEMOGLOBIN 8.6 g/dL (11.0-16.0); MEAN CELL VOLUME 65.5 fL (81.0-99.0); MEAN CORPUSCULAR HEMOGLOBIN 20.6 pg (27.0-31.0); MEAN CORPUSCULAR HGB CONC 31.4 g/dL (33.0-37.0); MEAN PLATELET VOLUME 9.2 fL (7.2-11.7); RBC 4.16 Mil/uL (3.80-5.20); RED CELL DISTRIBUTION WIDTH 19.2 % (11.5-14.5)
[2017-11-24 07:29] LABS: WHITE BLOOD COUNT 13.2 K/uL (4.8-10.8)
[2017-11-24] MEDS: Simethicone 80 mg Chewtab PO SCH ×5 (09:59→22:50)
[2017-11-24] MEDS: Prenatal Multivit/Folic Acid/Iron Tab PO SCH (10:00)
--- NOTE | 2017-11-24 12:51 | OBPPN ---
Datetime: 11/24/2017 08:45 PP Pain Prov: Within normal limits PP Pain Prov comment: mild abdominal pain at incision site PP Nausea Prov: Denies PP Flatus Prov: Yes PP BM Prov: No PP Breasts Prov: Not Done PP Heart Prov: Normal PP Lungs Prov: Normal PP Abdomen/Uterus Prov: Normal PP Lochia Prov: Normal PP Vulva/Perineum Prov: Normal PP CVA Tenderness Prov: Normal PP Extremities Prov: Normal PP C/S Incision Prov: Normal PP Progress Prov: Not Applicable PP Comments Phys Exam Prov: Heart: RRR, normal s1/s2 Lungs: CTA bilaterally. No w/r/r Abdomen: fundal height palpated along susie-umbilical. incision site shows no discharge, bleeding, erythema, clean, dry, and in-tact. Lower ext: no swelling or pitting edema. No calf tenderness. PP Impression Prov: Normal progression PP Plan Prov: Continue present management PP Progress Note Prov: POD #1 for repeat Patient was examined at bedside this morning. She is complaining of mild abdominal pain at c-secti on incision site. It was examined and within normal limits. Patient denies nausea, vomiting, shortnes s of breath, chest pain, lower extremity pain/edema, ad lochia. Patient takes tylenol, ibuprofen, and percocet for pain control. She is only bottle feeding. No bowel movement. She endorses flatus and is ambulating well. Patient is on regular diet and endorses appetite. A/P: Patient is 22 y/o F who presented on 11/23 for scheduled repeat . Patient is curre ntly POD #1. 1. Vital signs are stable 2. Encourage ambulation 3. Discussed with patient about control options 4. Anticipate possible discharge tomorrow. 5. f/u social work evaluation: patient was +cannabinoids on UDS on 11/23 6. Remove diego in 1 week 7. f/u in clinic as outpatient above by Dr. Dwayne Harper, PGY 1 I have personally seen and examined the patient and agree with the examination findings, assessmen t and plan. patient is appropriate for POD #1 from repeat CS, cont currnet management Coby Velazquez, in house service attending IP PP Procedures: None Vital Signs Provider PP: Reviewed; Within Normal Limits
[2017-11-25] MEDS: Oxycodone/Acetaminophen 5/325 mg Tab PO PRN ×5 (02:57→22:31)
[2017-11-25] MEDS: Prenatal Multivit/Folic Acid/Iron Tab PO SCH (09:56)
[2017-11-25] MEDS: Simethicone 80 mg Chewtab PO SCH ×4 (09:56→22:32)
--- NOTE | 2017-11-25 10:27 | OBPPN ---
Datetime: 11/25/2017 10:24 PP Pain Prov: Within normal limits PP Nausea Prov: Denies PP Flatus Prov: Yes PP BM Prov: No PP Breasts Prov: Normal PP Heart Prov: Normal PP Lungs Prov: Normal PP Abdomen/Uterus Prov: Normal PP Lochia Prov: Normal PP Vulva/Perineum Prov: Normal PP CVA Tenderness Prov: Normal PP Extremities Prov: Normal PP C/S Incision Prov: Normal PP Progress Prov: Normal PP Impression Prov: Normal progression PP Plan Prov: Continue present management PP Progress Note Prov: pt seen adn examiend preort pain contorlled, ambuting, voidng, passign flatus , no BM, otleratign regualr diet withotu nause, vomitng, cp, sob, urinary complaint. pt is breat and bottel feedign and denies any sadness or depression VSS PE gen :N nad AAO x 3 RESP Ctab/l CVS: rrr, +S1/S2 BREAST: sot, NT, non enroged b/l ABD: soft, NT/ND, +BS, no guaridng, no rebound tendnerss, no rigdity FUNDUS: Firm, belwo level of umbiclus INCCSION C/?DI hwealling well VE: minmal lochai, non fusl smelling EX:T negative jimbo's sign, no calf tendnerness A/P S/p rltcs pod #2 doignw ell f/u am labs bowel regimen pain mangent encourage mabaution /breat feeding social work consut IP PP Procedures: None Vital Signs Provider PP: Reviewed; Within Normal Limits
[2017-11-25 11:49] VITALS: RESP 18; O2SAT 99
[2017-11-26] MEDS: Oxycodone/Acetaminophen 5/325 mg Tab PO PRN ×2 (02:45→08:35)
[2017-11-26 08:46] VITALS: PULSE 80; TEMP 98.2
[2017-11-26] MEDS ORDERED: Influenza Vaccine 60 MCG/0.5 ML SYR (3 yr & up) IM ONE (10:00)
[2017-11-26] MEDS: Simethicone 80 mg Chewtab PO SCH ×2 (10:25→14:10)
[2017-11-26] MEDS: Prenatal Multivit/Folic Acid/Iron Tab PO SCH (10:26)
[2017-11-26 10:56] LABS: HEMOGLOBIN 8.6 g/dL (11.0-16.0); MEAN CELL VOLUME 66.2 fL (81.0-99.0); MEAN CORPUSCULAR HEMOGLOBIN 20.7 pg (27.0-31.0); MEAN CORPUSCULAR HGB CONC 31.3 g/dL (33.0-37.0); MEAN PLATELET VOLUME 8.5 fL (7.2-11.7); RBC 4.16 Mil/uL (3.80-5.20); RED CELL DISTRIBUTION WIDTH 19.6 % (11.5-14.5); WHITE BLOOD COUNT 9.8 K/uL (4.8-10.8)
--- NOTE | 2017-11-26 12:27 | OBPPN ---
Datetime: 11/26/2017 09:33 PP Pain Prov: Within normal limits PP Pain Prov comment: Mild abdominal pain PP Nausea Prov: Denies PP Flatus Prov: Yes PP BM Prov: Yes PP Breasts Prov: Not Done PP Heart Prov: Normal PP Lungs Prov: Normal PP Abdomen/Uterus Prov: Normal PP Lochia Prov: Normal PP Vulva/Perineum Prov: Normal PP CVA Tenderness Prov: Normal PP Extremities Prov: Normal PP C/S Incision Prov: Normal PP Progress Prov: Not Applicable PP Comments Phys Exam Prov: Gen: NAD. AAOx3. Patient was seen ambulating. Cardio: RRR, normal s1/s2. No murmurs. Lungs: CTA bilaterally. No w/r/r Abdomen: soft. Mild tenderness to palpation. incision site does not show signs of infect ion; non-erythematous, no drainage or bleeding/hematoma noted. Abdominal binder in place. Lower Ext: no pitting edema. No calf tenderness. Negative Delon's sign. PP Impression Prov: Normal progression PP Plan Prov: Continue present management; Discharge PP Progress Note Prov: POD #3 (repeat ) Patient was seen and examined at bedside this morning. She denies nausea, vomiting, headache, ligh theadedness, dizziness, chest pain, shortness of breath, lochia, diarrhea, and lower extremity pain/s welling. Patient is ambulting. She wants to bottlefeed only. Vital signs are stable. No adverse overn ight changes. Assessment: Patient is a 22 y/o F POD #3 (s/p repeat ) with no complications. Stable and Satisfactory condition and recovery Patient is pending discharge. Plan: 1. cbc at 10am 2. Pending discharge. Will give motrin and percocet for pain management upon discharge. 3. f/u outpatient clinic in 1 week for removal of diego 4. Social work has evaluated patient (MOUNA) and she is cleared for discharge Dwayne Harper, PGY1 PP Progress Note for Dr. Torres IP PP Procedures: None Vital Signs Provider PP: Reviewed; Within Normal Limits
--- NOTE | 2017-11-26 12:35 | OBDCSUM ---
Datetime: 11/26/2017 11:00 Discharged to, Provider: Home Follow up at, Provider: [facility] Disch Instr Activity: Normal activity Disch Instr Diet: Regular Discharge Instructions, Provider: Routine instructions given Discharge Diagnosis, Provider: Term Delivered Discharge Time: 11/26/2017 11:00 Follow up in weeks, Provider: 1 week Disch Referrals: None Contraception discussed, Prov: Yes Disch Activity Restrictions: No lifting; No driving; Minimize walking; Minimize stair-climbing; No s exual activity; Nothing in vagina - [place], tampons, douche Discharge Comment, Provider: POD #3 (repeat ) Patient was seen and examined at bedside this morning. She denies nausea, vomiting, headache, ligh theadedness, dizziness, chest pain, shortness of breath, lochia, diarrhea, and lower extremity pain/s welling. Patient is ambulting. She wants to bottlefeed only. Vital signs are stable. No adverse overn ight changes. Assessment: Patient is a 22 y/o F POD #3 (s/p repeat ) with no complications. Stable and Satisfactory condition and recovery Plan: 1. H_H today 8.6/27.6 - Stable 2.Acute Anemia superimposed on chronic anemia/Asymptomatic. 3.Discharge home with instructions and Rx for Motrin and percocet for pain management. 4. f/u outpatient clinic in 1 week for removal of diego 5. Social work has evaluated patient (MOUNA) and she is cleared for discharge 6. Advised to increase po water intake 7. Will continue Fe as outpatient for 4-6 months and will start on Colace 100 mg po BID Dwayne Harper, PGY1 PP Progress Note for Dr. Torres Discharge Diagnosis Prov Other: Previous C/S + UDS Contraception after Delivery: Undecided
[2017-11-26 21:08] VITALS: BP 109/69
== END 2017-11-26 14:20 | disposition home or self-care (01) | DRG 370 ==
LOC: C.4D 06:41 → C.4M 13:20
PROVIDERS: ADMIT Obstetrics & Gynecology; ATTEND Obstetrics & Gynecology
PROC: 10D00Z1 Extraction of Products of Conception, Low, Open Approach (ICD-10-PCS; principal; 2017-11-23)
DX: O34.211 Maternal care for low transverse scar from previous cesarean delivery (principal); O99.02 Anemia complicating childbirth; O99.324 Drug use complicating childbirth; Z3A.39 39 weeks gestation of pregnancy; O99.824 Streptococcus B carrier state complicating childbirth; F12.10 Cannabis abuse, uncomplicated; Z37.0 Single live birth